=== PATIENT | male | born 1940 | race Asian ===

== ENCOUNTER 2017-07-27 21:10 | Observation (INO) | payer OTHER ==
--- NOTE | 2017-07-27 21:32 | EDPHY ---
H & P Stated Complaint: HIGH B/P WEAKNESS, Time Seen by Provider: 07/27/17 21:32 HPI/ROS: CHIEF COMPLAINT: Referred to emergency department for abnormal lab testing HISTORY OF PRESENT ILLNESS: The patient presents to the emergency department after he was noted to have hyperglycemia on labs obtained by his primary care provider today. The patient denies prior history of diabetes. He does have a history of hypertension and gout. The patient does have mild symptoms of polyuria and polydipsia. The patient denies any fever, cough, vomiting or diarrhea. The patient denies any medication changes. The patient denies any complaints of acute headache or additional symptoms. REVIEW OF SYSTEMS: A comprehensive 10 point review of systems is otherwise negative aside from elements mentioned in the history of present illness. Source: Patient Exam Limitations: No limitations - Personal History Current Tetanus/Diphtheria Vaccine: Yes Current Tetanus Diphtheria and Acellular Pertussis (TDAP): Yes - Medical/Surgical History Hx Asthma: No Hx Chronic Respiratory Disease: No Hx Diabetes: No Hx Cardiac Disease: No Hx Renal Disease: No Hx Cirrhosis: No Hx Alcoholism: No Hx HIV/AIDS: No Hx Splenectomy or Spleen Trauma: No Other PMH: Kidney stones with lithotripsy, GOUT, HTN, - Social History Smoking Status: Never smoked - Physical Exam Exam: General Appearance: Alert, no distress Eyes: Pupils equal and round no pallor or injection ENT, Mouth: Mucous membranes moist Respiratory: There are no retractions, lungs are clear to auscultation Cardiovascular: Regular rate and rhythm Gastrointestinal: Abdomen is soft and nontender, no masses, bowel sounds normal Neurological: A&O, normal motor function, normal sensory exam, normal cranial nerves Skin: Warm and dry, no rashes Musculoskeletal: Neck is supple nontender Extremities: symmetrical, full range of motion Constitutional: Initial Vital Signs Temperature (C) 36.9 C 07/27/17 21:19 Heart Rate 74 07/27/17 21: Respiratory Rate 16 07/27/17 21:19 Blood Pressure 108/85 H 07/27/17 21:19 O2 Sat (%) 94 07/27/17 21:19 O2 Delivery Mode Room Air Allergies/Adverse Reactions: No Known Allergies Allergy (Verified 07/27/17 21:24) Home Medications: Medication Instructions Recorded Hydrocodone/APAP 5/325 [[place] 1 - 2 tab PO Q4PRN PRN #20 tab 11/26/16 5/325 (*)] Indomethacin [Indocin 25 mg (RX)] 50 mg PO TID PRN #50 cap 06/12/16 Meclizine HCl 06/12/16 Promethazine HCl [Phenergan 12.5mg 06/12/16 tab] Medical Decision Making ED Course/Re-evaluation: The patient presents the ED for evaluation of newly diagnosed hyperglycemia. The patient does not have an anion gap. He has no significant ketosis. The patient did have an IV established. He received 10 U of regular insulin. The patient was noted to have hyponatremia. The patient received 1 L of normal saline for IV rehydration. The patient will be admitted to the hospital for management of his elevated blood sugar. Consultation was made with the hospitalist service at 11:00 p.m.. The patient will be admitted to the step-down unit so that he can be managed with an insulin drip. Differential Diagnosis: Differential diagnosis considered includes hyperglycemia, diabetic ketoacidosis , dehydration, renal failure, metabolic abnormality - Data Points Laboratory Results: Laboratory Results 07/27/17 21:30 07/27/17 21:30 07/27/17 07/27/17 07/27/17 22:55 22:52 22:15 WBC RBC Hgb Hct MCV MCH MCHC RDW Plt Count MPV Neut % (Auto) Lymph % (Auto) Kerr % (Auto) Eos % (Auto) Baso % (Auto) Nucleat RBC Rel Count Absolute Neuts (auto) Absolute Lymphs (auto) Absolute Monos (auto) Absolute Eos (auto) Absolute Basos (auto) Absolute Nucleated RBC Immature Gran % Immature Gran # VBG pH 7.32 (7.31-7.42) VBG Lactic Acid 1.8 mmol/L mmol/L (0.7-2.1) Sodium Potassium Chloride Carbon Dioxide Anion Gap BUN Creatinine Estimated GFR Glucose POC Glucose > 350 mg/dL H mg/dL (70-100) Calcium Beta-Hydroxybutyrate 07/27/17 07/27/17 21:30 21:30 WBC 9.00 10^3/uL 10^3/uL (3.80-9.50) RBC 4.87 10^6/uL 10^6/uL (4.40-6.38) Hgb 16.2 g/dL g/dL (13.7-17.5) Hct 45.4 % % (40.0-51.0) MCV 93.2 fL fL (81.5-99.8) MCH 33.3 pg pg (27.9-34.1) MCHC 35.7 g/dL g/dL (32.4-36.7) RDW 12.0 % % (11.5-15.2) Plt Count 229 10^3/uL 10^3/uL (150-400) MPV 10.3 fL fL (8.7-11.7) Neut % (Auto) 65.7 % % (39.3-74.2) Lymph % (Auto) 25.8 % % (15.0-45.0) Kerr % (Auto) 6.4 % % (4.5-13.0) Eos % (Auto) 1.2 % % (0.6-7.6) Baso % (Auto) 0.3 % % (0.3-1.7) Nucleat RBC Rel Count 0.0 % % (0.0-0.2) Absolute Neuts (auto) 5.91 10^3/uL 10^3/uL (1.70-6.50) Absolute Lymphs (auto) 2.32 10^3/uL 10^3/uL (1.00-3.00) Absolute Monos (auto) 0.58 10^3/uL 10^3/uL (0.30-0.80) Absolute Eos (auto) 0.11 10^3/uL 10^3/uL (0.03-0.40) Absolute Basos (auto) 0.03 10^3/uL 10^3/uL (0.02-0.10) Absolute Nucleated RBC 0.00 10^3/uL 10^3/uL (0-0.01) Immature Gran % 0.6 % % (0.0-1.1) Immature Gran # 0.05 10^3/uL 10^3/uL (0.00-0.10) VBG pH VBG Lactic Acid Sodium 124 mEq/L L mEq/L (135-145) Potassium 4.8 mEq/L mEq/L (3.5-5.2) Chloride 93 mEq/L L mEq/L (97-110) Carbon Dioxide 19 mEq/l L mEq/l (22-31) Anion Gap 12 mEq/L mEq/L (8-16) BUN 41 mg/dL H mg/dL (7-23) Creatinine 1.7 mg/dL H mg/dL (0.7-1.3) Estimated GFR 39 Glucose 773 mg/dL H* mg/dL (70-100) POC Glucose Calcium 9.2 mg/dL mg/dL (8.5-10.4) Beta-Hydroxybutyrate 0.28 mmol/L H mmol/L (0.02-0.27) Medications Given: Discontinued Medications Sodium Chloride (Ns) 1,000 mls @ 0 mls/hr IV EDNOW ONE; Wide Open PRN Reason: Protocol Stop: 07/27/17 22:41 Last Admin: 07/27/17 22:47 Dose: 1,000 mls Insulin Human Regular (Humulin R) 10 unit IVP EDNOW ONE Stop: 07/27/17 22:12 Last Admin: 07/27/17 22:24 Dose: 10 units Point of Care Test Results: 07/27/17 22:52 POC Glucose > 350 H Departure - Departure Disposition: [facility] Inpatient Acute Clinical Impression: Hyponatremia, Dehydration, Hyperglycemia Condition: Good
--- NOTE | 2017-07-27 21:36 | CPEKG ---
Heart Rate: 75 RR Interval: 800 P-R Interval: 252 QRSD Interval: 86 QT Interval: 400 QTC Interval: 447 P Dennis: 13 QRS Dennis: 12 T Wave Dennis: 45 EKG Severity - ABNORMAL ECG - EKG Impression: SINUS RHYTHM EKG Impression: FIRST DEGREE AV BLOCK Electronically Signed By: Ubaldo Gotti 27-Jul-2017 22:51:07
[2017-07-27 21:46] LABS: PLATELET COUNT 229 10^3/uL (150-400)
[2017-07-27] MEDS ORDERED: INSULIN REGULAR HUMAN 100 UNIT/ML UNIT IVP ONE (22:11)
[2017-07-27] MEDS ORDERED: NS 1,000 ML IV ONE ×2 (22:40→23:07)
[2017-07-27] MEDS ORDERED: INSULIN REGULAR HUMAN 100 UNIT, COSIGN. REQUIRED 1 EA in NS 100 ML IV ONE (23:05)
[2017-07-27] MEDS ORDERED: ACETAMINOPHEN 325 MG TAB PO PRN (23:07)
[2017-07-27] MEDS ORDERED: ONDANSETRON DISINTEGRATING 4 MG TAB PO PRN (23:07)
[2017-07-27] MEDS ORDERED: ONDANSETRON 4 MG/2 ML VIAL IVP PRN (23:07)
[2017-07-27] MEDS ORDERED: INSULIN REGULAR HUMAN 100 UNIT in NS 100 ML IV SCH (23:30)
--- NOTE | 2017-07-28 00:20 | PDGENHP ---
History and Physical - Chief Complaint Hyperglycemia - History of Present Illness 77 yo M w/ hx of HTN presents to ED with hyperglycemia. He received routine labs from his PCP and was called to present to ED after noted to have severe hyperglycemia. He states he has noticed fatigue, polyuria, and polydipsia for 4- 5 days but overall is not very symptomatic. He denies any recent illness or additional symptoms. Reviewing records I see he had brief hyperglycemia and A1c of 6.1 during hospitalization in 2014 but has never been formally diagnosed with DM in the past. History Information - Allergies/Home Medication List Allergies/Adverse Reactions: No Known Allergies Allergy (Verified 07/27/17 21:24) Home Medications: Meclizine HCl 06/12/16 [Last Taken Unknown] Promethazine HCl [Phenergan 12.5mg tab] 06/12/16 [Last Taken Unknown] I have personally reviewed and updated: family history, medical history - Past Medical History hypertension Additional medical history: Gout - Family History Additional family history: Asked, denies - Social History Smoking Status: Never smoked Review of Systems Review of Systems: ROS: 10pt was reviewed & negative except for what was stated in HPI & below Physical Exam Physical Exam: Temp Pulse Resp BP Pulse Ox 36.9 C 71 18 101/77 99 07/27/17 21:19 07/27/17 23:42 07/27/17 22:00 07/27/17 23:42 07/27/17 23:42 Constitutional: no apparent distress, not in pain Eyes: PERRL, EOMI Ears, Nose, Mouth, Throat: no oral mucosal ulcers, dry mucous membranes Cardiovascular: regular rate and rhythym, systolic murmur Respiratory: no respiratory distress, clear to auscultation Gastrointestinal: normoactive bowel sounds, soft, non-tender abdomen Skin: warm, normal color Musculoskeletal: full muscle strength, no muscle tenderness Neurologic: AAOx3, CN II-XII Intact Psychiatric: interacting appropriately, not anxious Lab Data & Imaging Review 07/27/17 21:30 07/27/17 21:30 WBC 9.00 10^3/uL (3.80-9.50) 07/27/17 21:30 RBC 4.87 10^6/uL (4.40-6.38) 07/27/17 21:30 Hgb 16.2 g/dL (13.7-17.5) 07/27/17 21:30 Hct 45.4 % (40.0-51.0) 07/27/17 21: MCV 93.2 fL (81.5-99.8) 07/27/17 21: MCH 33.3 pg (27.9-34.1) 07/27/17: MCHC 35.7 g/dL (32.4-36.7) 07/27/17: RDW 12.0 % (11.5-15.2) 07/27/17: Plt Count 229 10^3/uL (150-400) 07/27/17 21: MPV 10.3 fL (8.7-11.7) 07/27/17: Neut % (Auto) 65.7 % (39.3-74.2) 07/27/17: Lymph % (Auto) 25.8 % (15.0-45.0) 07/27/17: [place] % (Auto) 6.4 % (4.5-13.0) 07/27/17: Eos % (Auto) 1.2 % (0.6-7.6) 07/27/17: Baso % (Auto) 0.3 % (0.3-1.7) 07/27/17: Nucleat RBC Rel Count 0.0 % (0.0-0.2) 07/27/17: Absolute Neuts (auto) 5.91 10^3/uL (1.70-6.50) 07/27/17: Absolute Lymphs (auto) 2.32 10^3/uL (1.00-3.00) 07/27/17: Absolute Monos (auto) 0.58 10^3/uL (0.30-0.80) 07/27/17: Absolute Eos (auto) 0.11 10^3/uL (0.03-0.40) 07/27/17: Absolute Basos (auto) 0.03 10^3/uL (0.02-0.10) 07/27/17: Absolute Nucleated RBC 0.00 10^3/uL (0-0.01) 01/10/18 21:30 Immature Gran % 0.6 % (0.0-1.1) 07/27/17 21:30 Immature Gran # 0.05 10^3/uL (0.00-0.10) 07/27/17 21:30 VBG pH 7.32 (7.31-7.42) 07/27/17 22:55 VBG Lactic Acid 1.8 mmol/L (0.7-2.1) 07/27/17 22:15 Sodium 124 mEq/L (135-145) L 07/27/17 21:30 Potassium 4.8 mEq/L (3.5-5.2) 07/27/17 21:30 Chloride 93 mEq/L (97-110) L 07/27/17 21:30 Carbon Dioxide 19 mEq/l (22-31) L 07/27/17 21:30 Anion Gap 12 mEq/L (8-16) 07/27/17 21:30 BUN 41 mg/dL (7-23) H 07/27/17 21:30 Creatinine 1.7 mg/dL (0.7-1.3) H 07/27/17 21:30 Estimated GFR 39 07/27/17 21:30 Glucose 773 mg/dL (70-100) H* 07/27/17 21:30 POC Glucose > 350 mg/dL (70-100) H 07/27/17 22:52 Calcium 9.2 mg/dL (8.5-10.4) 07/27/17 21:30 Beta-Hydroxybutyrate 0.28 mmol/L (0.02-0.27) H 07/27/17 21:30 Urine Color PALE YELLOW 07/27/17 23:23 Urine Appearance CLEAR 07/27/17 23:23 Urine pH 5.0 (5.0-7.5) 07/27/17 23:23 Ur Specific [place] 1.025 (1.002-1.030) 07/27/17 23:23 Urine Protein NEGATIVE (NEGATIVE) 07/27/17 23:23 Urine Ketones NEGATIVE (NEGATIVE) 07/27/17 23:23 Urine Blood 2+ (NEGATIVE) H 07/27/17 23:23 Urine Nitrate NEGATIVE (NEGATIVE) 07/27/17 23:23 Urine Bilirubin NEGATIVE (NEGATIVE) 07/27/17 23:23 Urine Urobilinogen NEGATIVE EU (0.2-1.0) 07/27/17 23:23 Ur Leukocyte Esterase NEGATIVE (NEGATIVE) 07/27/17 23:23 Urine RBC 5-10 /hpf (0-3) H 07/27/17 23:23 Urine WBC 1-3 /hpf (0-3) 07/27/17 23:23 Ur Epithelial Cells Not Reported 07/27/17 23:23 Urine Mucus TRACE /lpf (NONE-1+) 07/27/17 23:23 Urine Glucose 3+ (NEGATIVE) H 07/27/17 23:23 Assessment & Plan Assessment: 77 yo M w/ HTN and gout presents with severe hyperglycemia. Plan: 1. Severe hyperglycemia - Most likely from untreated DM. Review of records reveals noted to have moderate hyperglycemia with A1c of 6.1 during hospitalization in 2013 but he has never received a formal DM diagnosis and is not on treatment. No signs of complicating illness at this time. Interestingly not in DKA currently, BG 770 on admission with no AG and HCO3 of 19. - Will place on insulin gtt overnight noting severely elevated BG - Additional 1L NS now - Check A1c 2. Hyponatremia - 124 on admission, likely a reflection of severe hyperglycemia and related dehydration. Will treat hyperglycemia and monitor BMP. 3. CKD - Serum creatinine (1.7 on admission) appears to be near prior baseline. Will rehydrate and monitor BMP. 4. HTN - Patient states he is on a medication but does not remember which, needs med reconciliation. 5. Gout - No evidence of acute flare. Diet - Regular Code - Full Ppx - [facility] Dispo - Admit to observation status
[2017-07-28 04:35] LABS: PLATELET COUNT 170 10^3/uL (150-400)
[2017-07-28] MEDS ORDERED: HEPARIN 5,000 UNIT/0.5 ML SYR SC SCH (06:00)
[2017-07-28 08:23] VITALS: PULSE 77
[2017-07-28] MEDS: INSULIN LISPRO 100 UNIT/ML SC SCH ×2 (08:47→11:36)
[2017-07-28] MEDS ORDERED: ENOXAPARIN 40 MG/0.4 ML SYR SC SCH (09:00)
[2017-07-28] MEDS ORDERED: PNEUMOC 13-VAL CONJ-DIP CRM/PF 0.5 ML SYR IM ONE (09:02)
--- NOTE | 2017-07-28 09:53 | ASMTCASEMG ---
Living Arrangements What is your living Answers: Alone arrangement? Who do you live with? Type Of Residence What kind of residence do Answers: House you live in? Discharge Plan Comments Coordination Status Comments Notes: Patient is a 77yo male who was admitted for severe hypoglycemia, hyponatremia, CKD, HTN, and gout. No therapies have been ordered at this time. D/C needs TBD. CM will follow. Date Signed: 07/28/2017 09:52 AM Electronically Signed By:Frances Monsivais LCSW
[2017-07-28] MEDS ORDERED: INSULIN GLARGINE 100 UNITS/ML UNIT SC SCH (10:00)
[2017-07-28 12:23] VITALS: BP 115/76; RESP 21; TEMP 98.2; O2SAT 95
--- NOTE | 2017-07-28 13:49 | HOSPPROG ---
Hospitalist Progress Note Assessment/Plan: 77 yo M w new dm and hyperglycemia home on once daily lantus w pcp follow up seen w dm educator Subjective: blood sugars improved on insulin. a1c 11.7. seen in comjunction w denisse signal manager Objective: Vital Signs Temp Pulse Resp BP Pulse Ox 36.8 C 77 21 H 115/76 95 07/28/17 12:22 07/28/17 12:22 07/28/17 12:22 07/28/17 12:22 07/28/17 12:22 Laboratory Results 07/28/17 04:00 07/28/17 04:00 07/27/17 07/28/17 07/29/17 05:59 05:59 05:59 Intake Total 2475 Balance 2475 - Physical Exam Constitutional: no apparent distress, appears nourished Eyes: PERRL, anicteric sclera Ears, Nose, Mouth, Throat: moist mucous membranes, hearing normal Cardiovascular: regular rate and rhythym, no murmur, rub, or gallop Respiratory: no respiratory distress, no rales or rhonchi Gastrointestinal: normoactive bowel sounds, soft, non-tender abdomen Genitourinary: no bladder fullness, No arce in urethra Skin: warm, normal color Neurologic: AAOx3, sensation intact bilaterally Psychiatric: interacting appropriately, not anxious Lymph, Heme, Immunologic: no cervical LAD ICD10 Worksheet Patient Problems: Problems Problem Status Onset Dehydration Acute Hyperglycemia Acute Hyponatremia Acute Iron deficiency anemia Acute
--- NOTE | 2017-07-28 22:16 | GDS ---
[f rep st] DISCHARGE SUMMARY DISCHARGE DIAGNOSES: 1. New diabetes 3. 2. Marked hyperglycemia without diabetic ketoacidosis. 3. Possible hypertension. HISTORY OF PRESENT ILLNESS: Please see admission history and physical by Dr. Eliezer Goff. HOSPITAL COURSE: The patient presented to the emergency department. He was noted to have hyperglycemia on laboratories, obtained by his primary care. His presenting glucose was 700 without anion gap. He did not have sepsis. Venous pH was 7.3. He was initiated on an insulin drip overnight. Hemoglobin A1c returned to 11.7. He actually was found to have a relatively low insulin requirements. He is a very small man of 56 kg. The patient was started on Lantus once daily. His language was , and diabetic education was attempted with a refinery operator helper cracking unit. I opted for a simple insulin regimen of once daily Lantus and the importance of checking blood sugars twice daily with outpatient followup. He was discharged home. He demonstrated understanding of the clinical plan. /[id number]/MODL MTDD
== END 2017-07-28 14:27 | disposition home or self-care (01) ==
LOC: INTOOBSV 23:01 → F2N 07-28 01:38
PROVIDERS: ADMIT Student in an Organized Health Care Education/Training Program; ATTEND Student in an Organized Health Care Education/Training Program
DX: E10.65 Type 1 diabetes mellitus with hyperglycemia (principal)
CPT/HCPCS: 90670; 93005; G0009; G0378; J1815; 82947-QW; 96374

== ENCOUNTER 2018-05-05 12:06 | Inpatient (IN) | payer OTHER ==
[2018-05-05] MEDS ORDERED: NS 500 ML IV ONE (12:26)
--- NOTE | 2018-05-05 12:37 | EDPHY ---
H & P Time Seen by Provider: 05/05/18 12:23 HPI/ROS: HPI Generalized weakness. 78-year-old male by private vehicle with relative. This patient has a history of type 1 diabetes. The patient states that over the last week has been feeling weak and fatigued. He describes this as feeling a generalized fatigue not focal weakness. He reports that after eating today he felt an increase in generalized weakness, felt very lightheaded and almost fainted. He reports that he has been taking his insulin. Please see review of systems for further details. He reports that he takes 30 units of Levemir insulin at 6:00 p.m. At night only. He checks his blood sugar once daily at 11:00 a.m.. He reports that his blood sugars usually run in the low 300s. ROS: Constitutional: No fever, no chills. As above. Eyes: No discharge. No changes in vision. ENT: No sore throat. No nasal congestion or rhinorrhea. Respiratory: No cough. No shortness of breath. Cardiac: No chest pain, no palpitations. Gastrointestinal: No abdominal pain, no vomiting, no diarrhea. Genitourinary: No hematuria. No dysuria or increased frequency with urination. Musculoskeletal: No back pain. No neck pain. No myalgias or arthralgias. Skin: No rashes. Neurological: No headache. No focal weakness or altered sensation. Past medical history: Kidney stones with lithotripsy, gout, hypertension, type 1 diabetes. His primary care physician is Dr. Tresa Avila. On review of his medical records, he was last admitted to our hospital in July of 2017. He was diagnosed with insulin-dependent diabetes at that time. He was treated for severe hyperglycemia, hyponatremia and hypertension. Social history: Does not smoke. Here with family member. No alcohol. Physical Exam: General Appearance: Alert, no distress. This patient is responding to questions appropriately and in full sentences. This patient appears well- hydrated and well-nourished. Eyes: Pupils equal and round no pallor or injection. No lid edema, erythema or injection. ENT, Mouth: Mucous membranes are moist. The pharyngeal tissues are unremarkable. No edema or swelling. No asymmetry suggestive of abscess. No erythema or exudates. Respiratory: There are no retractions, lungs are clear to auscultation with good air movement bilaterally. Cardiovascular: Regular rate and rhythm. No murmur. Gastrointestinal: Abdomen is soft and nontender, no masses, bowel sounds normal. No focal tenderness at McBurney's point. No Syed sign. Rectal exam: No gross blood. Normal tone. Dark stool. Neurological: Motor sensory function is grossly intact. Cranial nerves are normal. Cerebellar function normal. Gait is normal. Skin: Warm and dry, no rashes. Musculoskeletal: Neck is supple and nontender. Extremities are symmetrical. All joints range without pain or impingement. Psychiatric: No agitation. No depression. Database: EKG: EKG time is 12:18 p.m.; EKG shows a narrow complex normal sinus rhythm with a ventricular rate of 91. 1st degree AV block noted. The VT is prolonged at 261. The QRS, QT intervals are within normal limits. There are no ST-T wave changes indicative of ischemic or injury pattern. No evidence of right heart strain. He has similar changes on his prior EKG Interpreted by me. Imaging: Chest x-ray AP portable; the cardiac mediastinal silhouette is unremarkable. No evidence of infiltrate or pneumothorax. No acute cardiopulmonary disease process noted. Interpreted by me. Procedures: Emergency department course: Triage vital signs reviewed. He is afebrile. Vital signs are otherwise within normal limits. An IV was placed. He was placed on a monitor. He was started on IV normal saline with 500 cc to 1 L to be given over the next hour. EKG obtained and reviewed by myself. Patient noted to be hyperglycemic with glucose in the 600s. He is not acidotic. He is hyponatremic with a sodium of 124. This is likely secondary to his hyperglycemia. Review of his medical records significant for a hemoglobin of 13 in July of this year and 11 today. Creatinine of 1.2 on October 07 and 1.7 today. Stool guaiac negative. 1:30 p.m., spoke with on-call hospitalist. Case discussed in detail. Patient accepted under the care of Dr. Tucker to the step-down unit. We will give the patient 5 units of IV regular insulin in the emergency department. He cannot be transported with a drip. He is not acidotic. Further insulin administration will be deferred to the hospitalist service. Plan for admission and further care discussed with the patient and his relative. All of their questions were answered. Blood sugar at 2:45 p.m. is 307. Patient has received 1 L of IV normal saline total in the emergency department. I spoke with his admitting hospitalist Dr. Tucker. He requested that we continue IV normal saline at 150 cc/hour. This was done. The patient will also now be admitted to the PCU and not to the step-down unit as initially plan. The patient's remaining emergency department course under my care has been uneventful. The patient was transferred in stable condition. Differential Diagnosis: The differential diagnosis on this patient includes but is not limited to hypoglycemia, hyperglycemia, DKA, urinary tract infection. This represents a partial list of diagnoses considered. These considerations are based on history , physical exam, past history, reassessment and diagnostic testing. Smoking Status: Never smoked Constitutional: Initial Vital Signs Temperature (C) 36.5 C 05/05/18 12:15 Heart Rate 95 05/05/18 12:15 Respiratory Rate 20 05/05/18 12:15 Blood Pressure 106/72 05/05/18 12:15 O2 Sat (%) 98 05/05/18 12:15 O2 Delivery Mode Room Air Allergies/Adverse Reactions: No Known Allergies Allergy (Verified 05/05/18 12:14) Home Medications: Medication Instructions Recorded Allopurinol [Allopurinol 300 MG 300 mg PO DAILY 07/28/17 (RX)] Colchicine [Colchicine (*)] 0.6 - 1.8 mg PO DAILY PRN 07/28/17 Hydrocodone/Acetaminophen [[place] 1 - 2 tab PO Q4H PRN 07/28/17 5/325 (*)] Indomethacin [Indocin 25 mg (*)] 50 mg PO TIDMEAL 07/28/17 Insulin Detemir [Levemir] 6 unit SQ DAILY #1 vial 07/28/17 Lovastatin 10 mg PO DAILY18 07/28/17 Meclizine HCl [Meclizine HCl 25 mg 25 mg PO Q8HRS PRN 07/28/17 (RX,OTC)] Multivitamins [Multivitamin (*)] 1 each PO DAILY 07/28/17 Promethazine HCl [Phenergan 12.5mg 12.5 - 25 mg PO Q4-6PRN PRN 07/28/17 tab] Ranitidine HCl [Zantac] 150 mg PO BID 07/28/17 Medical Decision Making - Diagnostics Imaging Results: Imaging Impressions Chest X-Ray 05/05/18 12:27 Impression: Negative - Data Points Laboratory Results: 05/05/18 05/05/18 12:33 12:31 POC Sodium 125 mEq/L L mEq/L (135-145) POC Potassium 4.0 mEq/L mEq/L (3.3-5.0) POC Chloride 104.0 mEq/L mEq/L (97-110) POC Total CO2 22 mEq/L mEq/L (22-31) POC BUN 28 mg/dL H mg/dL (7-23) POC Creatinine 1.7 mg/dL H mg/dL (0.7-1.3) POC Glucose 609 mg/dL H* mg/dL (70-100) POC Calcium 8.5 mg/dL mg/dL (8.5-10.4) POC Total Bilirubin 0.7 mg/dL mg/dL (0.1-1.4) POC AST 24 IU/L IU/L (17-59) POC ALT 20 IU/L L IU/L (21-72) POC Alk Phosphatase 89 IU/L IU/L (38-126) POC Troponin I 0.02 ng/mL ng/mL (0.00-0.08) POC Total Protein 6.1 g/dL L g/dL (6.3-8.2) POC Albumin 2.8 g/dL L g/dL (3.5-5.0) Medications Given: Discontinued Medications Sodium Chloride (Ns) 500 mls @ 1,000 mls/hr IV EDNOW ONE PRN Reason: Protocol Stop: 05/05/18 12:55 Last Admin: 05/05/18 12:52 Dose: 500 mls Insulin Human Regular (Humulin R) 7 unit IVP EDNOW ONE Stop: 05/05/18 13:28 Last Admin: 05/05/18 13:48 Dose: Not Given Insulin Human Regular (Humulin R) 5 unit IVP EDNOW ONE Stop: 05/05/18 13:31 Last Admin: 05/05/18 13:48 Dose: 5 unit Point of Care Test Results: CBC CBC Collection Date 05/05/18 CBC Collection Time 12:30 WBC 6.2 RBC 3.48 HGB 11.4 HCT 31.3 PLT 255 Neut # 4.2 Neut 68.2 LYMPH # 1.6 LYMPH 25.7 Other WBC # 0.4 Other WBC 6.1 MCV 89.9 Chemistry 05/05/18 05/05/18 12:33 12:31 POC Sodium 125 mEq/L L mEq/L (135-145) POC Potassium 4.0 mEq/L mEq/L (3.3-5.0) POC Chloride 104.0 mEq/L mEq/L (97-110) POC Total CO2 22 mEq/L mEq/L (22-31) POC BUN 28 mg/dL H mg/dL (7-23) POC Creatinine 1.7 mg/dL H mg/dL (0.7-1.3) POC Glucose 609 mg/dL H* mg/dL (70-100) POC Calcium 8.5 mg/dL mg/dL (8.5-10.4) POC Total Bilirubin 0.7 mg/dL mg/dL (0.1-1.4) POC AST 24 IU/L IU/L (17-59) POC ALT 20 IU/L L IU/L (21-72) POC Alk Phosphatase 89 IU/L IU/L (38-126) POC Troponin I 0.02 ng/mL ng/mL (0.00-0.08) POC Total Protein 6.1 g/dL L g/dL (6.3-8.2) POC Albumin 2.8 g/dL L g/dL (3.5-5.0) Occult Blood Occult Blood Collection Date 05/05/18 Occult Blood Collection Time 13:02 Occult Blood Result Negative/Negative Urine Dip Collection Date 05/05/18 Collection Time 12:42 Specific [place] (1.002-1.030) 1.005 PH (5.0-7.5) 6.0 Leukocytes (Negative) Negative Nitrites (Negative) Negative Protein (Negative) Negative Glucose (Negative) 2+ Ketones (Negative) Negative Urobilnogen (0.2-1.0 EU) 0.2 Bilirubin (Negative) Negative Blood (Negative) Negative Departure - Departure Disposition: [facility] Inpatient Acute Clinical Impression: Near syncope, Hyperglycemia, Dehydration, Hyponatremia, Renal insufficiency, Anemia
[2018-05-05] MEDS ORDERED: INSULIN REGULAR HUMAN 100 UNIT/ML UNIT IVP ONE ×2 (13:30→14:44)
[2018-05-05] MEDS: INSULIN REGULAR HUMAN 100 UNIT/ML UNIT IVP ONE ×2 (13:46→13:48)
[2018-05-05] MEDS ORDERED: ACETAMINOPHEN 325 MG TAB PO PRN (14:45)
[2018-05-05] MEDS ORDERED: ONDANSETRON 4 MG/2 ML VIAL IVP PRN (14:45)
[2018-05-05] MEDS ORDERED: ONDANSETRON DISINTEGRATING 4 MG TAB PO PRN (14:45)
[2018-05-05] MEDS: NS 1,000 ML IV SCH ×2 (14:50→21:00)
[2018-05-05] MEDS ORDERED: D50W 25 GM/50 ML SYR IVP PRN (14:54)
--- NOTE | 2018-05-05 18:12 | PDGENHP ---
History and Physical - Chief Complaint Acute near syncope - History of Present Illness Primary care provider: Dr. Tresa Avila HPI: 78-year-old male presenting with acute near syncope characterized as almost passing out with associated lightheadedness concomitant to his symptoms and onset of fatigue approximately 1 week prior. His near-syncope and lightheadedness occurred after he ate a meal today, and he did not experience any loss of consciousness. Patient reports polydipsia and polyuria over this 1 week interval. He reports that he has been hungry and eating a regular diet, taking his Levemir 30 units nightly and checking his blood sugars regularly. He reports that his blood sugars routinely run in the 300 range. In the past, he had taken Levemir twice daily, but this resulted in increased fatigue, so he backed off to once daily. He otherwise denies any pain or any infectious symptoms. History Information - Allergies/Home Medication List Allergies/Adverse Reactions: No Known Allergies Allergy (Verified 05/05/18 12:14) Home Medications: Insulin Detemir [Levemir] 30 unit SQ HS 05/05/18 [Last Taken 05/04/18] I have personally reviewed and updated: family history, medical history, social history, surgical history - Past Medical History diabetes type 2 (Most recent hemoglobin A1c 11.7%), hypertension Additional medical history: Gout. Nephrolithiasis - Surgical History Additional surgical history: Lithotripsy - Family History Additional family history: No recent sick family contacts - Social History Smoking Status: Never smoked Alcohol Use: None Drug Use: None Additional social history: Independent in his ADLs Review of Systems Review of Systems: Constitutional: Reports: weakness Genitourinary: Reports: other (Polyuria and polydipsia) Neurological: Reports: other (Lightheadedness) Physical Exam Physical Exam: Temp Pulse Resp BP Pulse Ox 36.5 C 95 18 94/72 L 95 05/05/18 15:40 05/05/18 15:40 05/05/18 15:40 05/05/18 15:40 05/05/18 15:40 Constitutional: no apparent distress, not in pain, other (Thin appearing), No uncomfortable Eyes: PERRL, anicteric sclera, EOMI Ears, Nose, Mouth, Throat: hearing normal, ears appear normal, no oral mucosal ulcers, other (Tacky mucous membranes) Cardiovascular: regular rate and rhythym, no murmur, rub, or gallop, No carotid bruit, No edema Respiratory: no respiratory distress, no rales or rhonchi, clear to auscultation Gastrointestinal: normoactive bowel sounds, soft, non-tender abdomen, no palpable masses Genitourinary: no bladder fullness, no bladder tenderness Neurologic: sensation intact bilaterally, CN II-XII Intact, No weakness, No facial droop Psychiatric: interacting appropriately, not anxious, not encephalopathic, thought process linear Lab Data & Imaging Review POC Sodium 125 mEq/L (135-145) L 05/05/18 12:33 POC Potassium 4.0 mEq/L (3.3-5.0) 05/05/18 12:33 POC Chloride 104.0 mEq/L (97-110) 05/05/18 12:33 POC Total CO2 22 mEq/L (22-31) 05/05/18 12:33 POC BUN 28 mg/dL (7-23) H 05/05/18 12:33 POC Creatinine 1.7 mg/dL (0.7-1.3) H 05/05/18 12:33 POC Glucose 85 mg/dL (70-100) 05/05/18 17:23 POC Calcium 8.5 mg/dL (8.5-10.4) 05/05/18 12:33 POC Total Bilirubin 0.7 mg/dL (0.1-1.4) 05/05/18 12:33 POC AST 24 IU/L (17-59) 05/05/18 12:33 POC ALT 20 IU/L (21-72) L 05/05/18 12:33 POC Alk Phosphatase 89 IU/L (38-126) 05/05/18 12:33 POC Troponin I 0.02 ng/mL (0.00-0.08) 05/05/18 12:31 POC Total Protein 6.1 g/dL (6.3-8.2) L 05/05/18 12:33 POC Albumin 2.8 g/dL (3.5-5.0) L 05/05/18 12:33 Visualized and Interpreted Chest x-ray results: Yes Chest X-Ray results: no infiltrate Assessment & Plan Assessment: 78-year-old male presents with acute near syncope in the setting of severe hyperglycemia Plan: 1. Severe hyperglycemia. Acute on chronic, new problem this provider, further workup indicated. Suspect that this is secondary to inadequately controlled diabetes as an outpatient, with the patient electively only utilizing Levemir once daily and with poor tolerance of glucose levels less than 300 -check hemoglobin A1c -check troponin levels to ensure no silent MIs precipitating factor -check urinalysis to ensure no urinary tract infection -discussed with Roberto Mendiola, the patient's glucose level responded to 5 units of short-acting insulin at urgent care as well as aggressive IV fluids -will continue normal saline 150 an hour, insulin sliding scale with regular insulin -will modify his Levemir from 30 units at bedtime to 20 units twice daily of Lantus and recommend 20 units twice daily of Levemir moving forward if he tolerates this dosage -recheck chemistry this evening 2. Hyponatremia. Acute, most likely combination of hypovolemic as well as pseudo secondary to hyperglycemia -giving normal saline, rechecking this evening 3. Chronic kidney disease stage 3. Reviewed outside records indicating baseline creatinine level 1.2-1.7, most recently checked 10/07/2017 -continue monitor renal function, urine output 4. Diabetes mellitus type 2. Reviewed outside records including discharge summary by Dr. Roberto Banks from 07/28/2017 recounting that the patient had severe hyperglycemia but no evidence of DKA, his glucose level 700 responded to Lantus and to safely discharge, A1c 11.7% at that time -I suspect the patient experiences symptomatic relative reduction in glucose level when dropped below 300 and this may account for why he felt unwell with Levemir twice daily -that being said, his hemoglobin A1c will be checked and if it is significantly above goal then twice daily dosing at a lower dosage of Levemir be recommended -aspirin 81 for primary CAD prevention -check lipid panel with goal LDL 100 5. Acute near syncope. Most likely secondary to relative hypovolemia in the setting of polyuria from severe hyperglycemia will monitor on telemetry overnight and check troponin level as above Diet. Diabetic Prophylaxis. Moderate risk, heparin subcu Code. Full comma POStarr discussions ongoing Disposition. Anticipated discharge is 05/06, pending stabilization of above.
[2018-05-05] MEDS: INSULIN REGULAR HUMAN 100 UNIT/ML UNIT SC SCH ×2 (18:42→21:59)
[2018-05-05 20:08] LABS: PLATELET COUNT 228 10^3/uL (150-400)
[2018-05-05] MEDS: INSULIN GLARGINE 100 UNITS/ML UNIT SC SCH (22:00)
[2018-05-06 04:35] LABS: PLATELET COUNT 189 10^3/uL (150-400)
[2018-05-06] MEDS: ASPIRIN EC 81 MG TAB PO SCH (08:52)
[2018-05-06] MEDS: INSULIN REGULAR HUMAN 100 UNIT/ML UNIT SC SCH ×4 (09:37→21:27)
--- NOTE | 2018-05-06 12:12 | ASMTCMCOM ---
CM Note CM Note Notes: Patient plan of care reviewed in rounds, he is from [place] and speaks [place]. Referrals made to [facility] in hopes to find a care provider that might speak his language. CM to follow. plan: Home with [facility] RN for management of diabetes. Date Signed: 05/06/2018 12:11 PM Electronically Signed By:Nancy Colón RN
[2018-05-06] MEDS: INSULIN GLARGINE 100 UNITS/ML UNIT SC SCH ×2 (12:27→21:27)
[2018-05-06] MEDS: NS 1,000 ML IV SCH ×2 (12:28→21:28)
--- NOTE | 2018-05-06 15:56 | HOSPPROG ---
Hospitalist Progress Note Assessment/Plan: * Near syncope - suspect due to hypovolemia * DM II uncontrolled, cause of volume depletion -very difficult to control BG with large daily variation -patient not consistent with diet -concern for compliance with recommendations -Lantus insulin increased - will monitor on new regimen -HgA1c pending * CKD - at baselin 1.2 * Anemia - worsening -likely due to hydration - will follow -no evidence for bleed -check iron levels and B12 Subjective: Poor PO intake, no further syncope Objective: Vital Signs Temp Pulse Resp BP Pulse Ox 37.5 C 86 18 121/81 H 96 05/06/18 15:33 05/06/18 15:33 05/06/18 15:33 05/06/18 15:33 05/06/18 15:33 Laboratory Results 05/06/18 04:10 05/06/18 04:10 05/05/18 05/06/18 05/07/18 05:59 05:59 05:59 Intake Total 3325 Output Total 400 Balance 2925 OLd chart reviewed - just diagnosed with DM in Jul, Hga1c 11.7 at that time tele - NSR CXR - negative - Physical Exam Constitutional: no apparent distress, appears nourished, not in pain Cardiovascular: regular rate and rhythym, no murmur, rub, or gallop Respiratory: no respiratory distress, no rales or rhonchi, clear to auscultation Gastrointestinal: normoactive bowel sounds, soft, non-tender abdomen, no palpable masses Skin: no rashes or abrasions, no fluctuance, no induration Neurologic: AAOx3, sensation intact bilaterally Psychiatric: interacting appropriately, not anxious, not encephalopathic, thought process linear ICD10 Worksheet Patient Problems: Problems Problem Status Onset Iron deficiency anemia Acute Hyponatremia Acute Dehydration Acute Hyperglycemia Acute Near syncope Acute Renal insufficiency Acute Anemia Acute
--- NOTE | 2018-05-06 18:37 | PDMN ---
Medical Necessity Medical necessity: [facility] M130 Diabetes and M123 Dehydration: 78 yo w/ syncope, severe hyperglycemia, acute on chronic, and acute on chronic kidney disease stage 3. Hx DM, HTN, gout, nephrolithiasis. Pt cont to have uncontrolled blood glucose and worsening anemia (10.2/29.3 on admit, now 8.8/25.7) prob r/t dehydration, cont to follow. Pt requires another MN for ongoing IVF, BG management and serial labs. PT/OT consults. Change to IP status per MD order 05/06/18 @1442
[2018-05-07 04:20] LABS: PLATELET COUNT 188 10^3/uL (150-400)
[2018-05-07] MEDS ORDERED: CYANO/VITAMIN B12 1000 MCG/ML VIAL IM ONE (08:41)
[2018-05-07] MEDS ORDERED: PROTOCOL POTASSIUM 1 DOSE MISC PRN (08:43)
[2018-05-07] MEDS ORDERED: CYANO/VITAMIN B12 1000 MCG TAB PO SCH (09:00)
[2018-05-07] MEDS: INSULIN REGULAR HUMAN 100 UNIT/ML UNIT SC SCH ×2 (09:00→12:46)
[2018-05-07] MEDS: ASPIRIN EC 81 MG TAB PO SCH (09:01)
[2018-05-07] MEDS ORDERED: POTASSIUM CL 10 MEQ TAB PO ONE (09:37)
[2018-05-07] MEDS: INSULIN GLARGINE 100 UNITS/ML UNIT SC SCH (10:32)
[2018-05-07] MEDS ORDERED: POLYETHYLENE GLYCOL 3350 17 GM PKT PO PRN (12:05)
[2018-05-07] MEDS ORDERED: MAGNESIUM HYDROXIDE 30 ML UDCUP PO PRN (12:05)
[2018-05-07] MEDS ORDERED: LACTULOSE 20 GM/30 ML UDCUP PO PRN (12:05)
[2018-05-07] MEDS ORDERED: BISACODYL 10 MG SUPP PR PRN (12:05)
[2018-05-07 12:26] VITALS: BP 117/87
--- NOTE | 2018-05-07 13:37 | PDIAF ---
- Diagnosis Diagnosis: uncontrolled diabetes Code Status: Full Code - Medication Management Discharge Medications: Medications to Continue on Transfer Cyanocobalamin [Vitamin B12 (*)] 1,000 mcg PO DAILY #30 tab 05/07/18 [Last Taken Unknown] Insulin Detemir [Levemir] 35 unit SQ DAILY #10 05/07/18 [Last Taken 05/04/18] Additional Medication Instructions: Diabetes education needed Discharge Medications: Refer to the Discharge Home Medication list for PRN reason. - Orders Services needed: Home Care, Registered Nurse Home Care Face to Face: I certify that this patient was under my care and that I had the required [id number] encounter meeting the encounter requirements on the discharge day. My findings support the fact that the patient is homebound as defined in Home Care Face to Face Continued: CMS Chapter 7 Medicare Benefits Manual 30.1.1 , The condition of the patient is such that there exists a normal inability to leave home and consequently, leaving home would require a considerable and taxing effort. Diet Recommendation: ADA 2000 consistent carb Additional Instructions: Take insulin in the morning rather than night time Increase dose 35 units Close follow-up with PCP - Follow Up Care Current Providers and Referrals: Tresa Avila MD [Primary Care Provider] - As per Instructions
--- NOTE | 2018-05-07 13:51 | ASMTCMCOM ---
CM Note CM Note Notes: Met with patient and his friend Lukasz jacques (Brendan Cheek), He speaks [place]isian and can participate in the coordination of care for Delfino. I have his permission to use hs number to help co-ordinate [facility] services. [phone]. The patient has been medically cleared for discharge and will go home today, Final orders via [facility] to [facility]. CM available should other needs arise. Plan: Home with [facility] Date Signed: 05/07/2018 01:50 PM Electronically Signed By:Nancy Colón RN
--- NOTE | 2018-05-07 16:43 | ASMTLACE ---
LACE Length of stay for Answers: 1 day current admission Comorbidities - select Answers: Diabetes (uncontrolled or all that apply controlled) Score: 2 Date Signed: 05/07/2018 01:43 PM Electronically Signed By:Nancy Colnó RN
--- NOTE | 2018-05-07 17:23 | GDS ---
DISCHARGE DIAGNOSES: 1. Near syncope due to hypovolemia. 2. Uncontrolled diabetes type 2. 3. Chronic kidney disease. Baseline creatinine 1.2. 4. B12 deficiency with anemia. HISTORY: The patient is a 78-year-old male, who presented with near syncope. This was felt to be du e to uncontrolled diabetes and high glucose causing hypovolemia. There is questionable compliance to his insulin as he states he feels badly when his glucoses go low probably due to his longstanding hy perglycemia and adjustment to that state. He is also not consistent with his diet and his diabetes i s relatively brittle especially with severe a.m. hypoglycemia and then going up dramatically through the day. Hemoglobin A1c is pending at discharge. I did increase his Lantus slightly, but more impor tantly I think we need to change his Lantus dosing to the morning given his a.m. hypoglycemia will be good to be trailing off the dosage at that time. We arranged home health, and he needs extensive di abetes education. He needs compliance assured. He needs close followup with Primary Care for furthe r titration of insulin. Incidentally noted was a macrocytic anemia. B12 was borderline low. So he was given a 1 time IM B12 injection and instructed take B12 tablets thereafter. DISCHARGE MEDICATIONS: Please see computerized record for full detailed list. New medications: 1. B12 1000 mcg p.o. daily. 2. Levemir insulin increased to 35 units subcu daily and changed to morning dosage rather than night time. Greater than 30 minutes' time spent arranging this discharge. Patient was seen and examined by me on the day of discharge. /[id number]/MODL
[2018-05-07] MEDS ORDERED: SENNOSIDES/DOCUSATE SODIUM TAB PO SCH (21:00)
== END 2018-05-07 15:50 | disposition home health service (06) | DRG 641 ==
LOC: CED 12:06 → INTOOBSV 13:28 → CEDHOLD 13:28 → F2W 16:09 → OBSVTOIN 05-06 14:48
PROVIDERS: ADMIT Internal Medicine; ATTEND Internal Medicine
DX: E86.1 Hypovolemia (principal); E11.65 Type 2 diabetes mellitus with hyperglycemia; E87.1 Hypo-osmolality and hyponatremia; N18.3 Chronic kidney disease, stage 3 (moderate); E53.8 Deficiency of other specified B group vitamins; D64.9 Anemia, unspecified; Z79.4 Long term (current) use of insulin
CPT/HCPCS: 71045-PO; 80053-PO; 82607-90; 84484-PO; 96374; 97116-GP; 97161-GP; 97165-GO; 97530-GP; G0378; G8978-GP-CJ; G8979-GP-CI; G8987-GO-CI; G8988-GO-CI; G8989-GO-CI; J1815; J3420

== ENCOUNTER 2019-01-03 19:49 | Inpatient (IN) | payer OTHER | END 2019-01-09 17:20 | disposition home health service (06) | LOC: F3E 01-04 14:55 ==